=== PATIENT | male | born 1960 | race Caucasian/White ===

== ENCOUNTER 2017-03-14 16:17 | Emergency (ER) | payer OTHER, SELFPAY ==
[~2017-03-14] VITALS: Ht 180.3 cm; Wt 81.7 kg
[2017-03-14] MEDS ORDERED: ALBU17IN2 INH (16:40)
[2017-03-14] MEDS ORDERED: KETOROLAC 30 MG/ML VIAL (J1885) IV ONE (17:00)
[2017-03-14] MEDS ORDERED: NAPR500T PO (18:35)
[2017-03-14] MEDS ORDERED: VALI5TAB PO (18:36)
[2017-03-14] MEDS ORDERED: NORCOTAB PO (18:43)
[2017-03-14 18:50] VITALS: BP 147/71
--- NOTE | 2017-03-14 21:38 | REP ---
LEFT HAND, FOUR VIEWS: There is no evidence of an acute fracture, dislocation or intrinsic bone disease. IMPRESSION: No fracture or dislocation. Signed by Jett Schaeffer MD 03/15/2017 01:09 P
--- NOTE | 2017-03-14 21:45 | REP ---
LUMBOSACRAL SPINE: Five views of the lumbosacral spine are performed. There is no compression fracture or malalignment. There is normal lumbar lordosis. Moderate spurring is seen of the lower thoracic vertebral bodies with mild spurring of lumbar vertebral bodies. There is mild disc space narrowing and subchondral sclerosis at L1-2, L2-3, and L3-4. There is sclerosis at the facets of L5-S1. The posterior elements are intact. IMPRESSION: Degenerative changes without fracture or dislocation. Signed by Jett Schaeffer MD 03/15/2017 01:10 P
== END 2017-03-14 18:58 | disposition home or self-care (01) ==
LOC: M ED 16:17
DX: S60.222A Contusion of left hand, initial encounter (principal); S39.012A Strain of muscle, fascia and tendon of lower back, initial encounter; J45.909 Unspecified asthma, uncomplicated; V86.59XA Driver of other special all-terrain or other off-road motor vehicle injured in nontraffic accident, initial encounter; Y92.89 Other specified places as the place of occurrence of the external cause; Y99.9 Unspecified external cause status; Y93.9 Activity, unspecified; Z79.899 Other long term (current) drug therapy
CPT/HCPCS: 72110; 73130; 96374; 96375; 96376; 99283; J1885; J3360